=== PATIENT | male | born 1965 | race Caucasian/White ===

== ENCOUNTER 2017-06-28 15:54 | Emergency (ER) | payer OTHER ==
[2017-06-28 16:03] VITALS: BP 152/81; PULSE 106; RESP 20; TEMP 97.8
[2017-06-28 17:08] LABS: Basophils % (A) 1 %; Eosinophils # (A) 0.3 k/uL (0-0.7); Eosinophils % (A) 4 %; HGB 14.7 gm/dL (13.0-17.5); Lymphocytes # (A) 1.7 k/uL (1.0-4.8); Lymphocytes % (A) 27 %; MCH 34.9 pg (25.0-35.0); MCHC 33.4 g/dL (31.0-37.0); MCV 104.5 fL (80.0-100.0); Macrocytosis Slight; Monocytes # (A) 0.3 k/uL (0-1.0); Monocytes % (A) 5 %; Neutrophils # (A) 3.8 k/uL (1.3-7.7); Neutrophils % (A) 60 %; Platelet Count 206 k/uL (150-450); RBC 4.21 m/uL (4.30-5.90); RDW 13.3 % (11.5-15.5); WBC 6.3 k/uL (3.8-10.6)
[2017-06-28 17:18] LABS: Anion Gap 11 mmol/L; Blood Urea Nitrogen 12 mg/dL (9-20); Calcium 9.2 mg/dL (8.4-10.2); Carbon Dioxide 28 mmol/L (22-30); Chloride 105 mmol/L (98-107); Glucose 95 mg/dL (74-99); Potassium 4.1 mmol/L (3.5-5.1); Sodium 144 mmol/L (137-145)
--- NOTE | 2017-06-28 18:17 | US ---
EXAMINATION TYPE: US venous doppler duplex LE LT DATE OF EXAM: 06/28/2017 5:54 PM COMPARISON: recent US CLINICAL HISTORY: Pain. EC patient with increased swelling left leg with DVT and PE; patient is on bl ood thinner SIDE PERFORMED: Left TECHNIQUE: The lower extremity deep venous system is examined utilizing real time linear array sonog silvia with graded compression, doppler sonography and color-flow sonography. VESSELS IMAGED: Common Femoral Vein Deep Femoral Vein Greater Saphenous Vein * Femoral Vein Popliteal Vein Small Saphenous Vein * Proximal Calf Veins (* superficial vessels) Left Leg: Positive for DVT in Left Femoral Vein, Popliteal Vein , and upper calf Veins. IMPRESSION: There is acute deep venous thrombosis evident in the lower femoral vein and the popliteal vein and upper calf veins.
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
== END 2017-06-28 19:55 | disposition home or self-care (01) ==
LOC: EC 15:54
DX: M79.89 Other specified soft tissue disorders (principal); R07.9 Chest pain, unspecified; J44.9 Chronic obstructive pulmonary disease, unspecified; F17.200 Nicotine dependence, unspecified, uncomplicated; Z79.51 Long term (current) use of inhaled steroids; Z79.899 Other long term (current) drug therapy
CPT/HCPCS: 36415; 80048; 85025; 93005; 99285

== ENCOUNTER 2017-07-14 17:48 | Emergency (ER) | payer OTHER ==
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
[2017-07-14] MEDS ORDERED: SODIUM CHLORIDE 0.9% 1,000 ML with MVI, ADULT NO.4 WITH VIT K 10 ML, THIAMINE 100 MG, F... IV ONE ×4 (18:44)
--- NOTE | 2017-07-14 19:08 | CT ---
EXAMINATION TYPE: CT brain wo con DATE OF EXAM: 07/14/2017 COMPARISON: NONE HISTORY: Headache CT DLP: 1017.1 mGycm Automated exposure control for dose reduction was used. FINDINGS: There is mild cerebral cortical atrophy. There is no mass effect nor midline shift. There is no sign of intracranial hemorrhage. The calvarium is intact. There is mild mucosal thickening in the left ant erior ethmoid sinus. IMPRESSION: MILD ATROPHY. OTHERWISE NEGATIVE EXAM.
[2017-07-14 19:48] LABS: ALT 100 U/L (21-72); AST 116 U/L (17-59); Albumin 4.4 g/dL (3.5-5.0); Alkaline Phosphatase 92 U/L (38-126); Anion Gap 17 mmol/L; Blood Urea Nitrogen 15 mg/dL (9-20); Calcium 9.3 mg/dL (8.4-10.2); Carbon Dioxide 26 mmol/L (22-30); Chloride 100 mmol/L (98-107); Glucose 64 mg/dL (74-99); Magnesium 1.7 mg/dL (1.6-2.3); Potassium 4.4 mmol/L (3.5-5.1); Sodium 143 mmol/L (137-145); Total Bilirubin 0.5 mg/dL (0.2-1.3); Total Protein 6.8 g/dL (6.3-8.2)
[2017-07-14 19:54] LABS: Basophils % (A) 1 %; Eosinophils # (A) 0.1 k/uL (0-0.7); Eosinophils % (A) 2 %; HCT 49.6 % (39.0-53.0); HGB 16.3 gm/dL (13.0-17.5); Lymphocytes # (A) 1.6 k/uL (1.0-4.8); Lymphocytes % (A) 29 %; MCH 34.4 pg (25.0-35.0); MCHC 32.8 g/dL (31.0-37.0); MCV 104.7 fL (80.0-100.0); Macrocytosis Slight; Mean Platelet Volume 6.7; Monocytes # (A) 0.2 k/uL (0-1.0); Monocytes % (A) 3 %; Neutrophils # (A) 3.4 k/uL (1.3-7.7); Neutrophils % (A) 61 %; Platelet Count 215 k/uL (150-450); RBC 4.74 m/uL (4.30-5.90); RDW 13.8 % (11.5-15.5); WBC 5.5 k/uL (3.8-10.6)
[2017-07-14 20:48] LABS: Glucose,Whole Blood 73 mg/dL (75-99)
[2017-07-14] MEDS ORDERED: LORazepam 2 MG/ML INJ IV STA ×2 (22:03→22:39)
[2017-07-14 22:05] LABS: Glucose,Whole Blood 146 mg/dL (75-99)
[2017-07-14 23:14] VITALS: BP 139/80; PULSE 112; RESP 16; TEMP 97.8
[2017-07-15 15:41] LABS: Hepatitis A Antibody IgM Non-Reactive (Non-Reactive); Hepatitis B Core IgM Non-Reactive (Non-Reactive)
== END 2017-07-14 23:15 | disposition home or self-care (01) ==
LOC: EC 17:48
DX: F10.129 Alcohol abuse with intoxication, unspecified (principal); R74.8 Abnormal levels of other serum enzymes; J44.9 Chronic obstructive pulmonary disease, unspecified; F17.200 Nicotine dependence, unspecified, uncomplicated; Z79.51 Long term (current) use of inhaled steroids; Z79.899 Other long term (current) drug therapy
CPT/HCPCS: 36415; 80053; 80074; 83735; 84100; 85025; 70450; 99284; 96365; 96366 ×3; 96375; 96376; J2060; J3411

== ENCOUNTER 2017-10-13 22:34 | Emergency (ER) | payer OTHER ==
[2017-10-13 22:43] VITALS: RESP 18
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
[2017-10-13 23:27] LABS: Basophils % (A) 1 %; Eosinophils # (A) 0.2 k/uL (0-0.7); Eosinophils % (A) 3 %; HCT 52.2 % (39.0-53.0); Lymphocytes # (A) 1.9 k/uL (1.0-4.8); Lymphocytes % (A) 28 %; MCH 34.2 pg (25.0-35.0); MCHC 32.6 g/dL (31.0-37.0); MCV 104.8 fL (80.0-100.0); Macrocytosis Slight; Mean Platelet Volume 6.3; Monocytes # (A) 0.3 k/uL (0-1.0); Monocytes % (A) 4 %; Neutrophils # (A) 4.1 k/uL (1.3-7.7); Neutrophils % (A) 62 %; Platelet Count 186 k/uL (150-450); RBC 4.98 m/uL (4.30-5.90); RDW 13.7 % (11.5-15.5); WBC 6.6 k/uL (3.8-10.6)
[2017-10-13 23:32] LABS: Prothrombin Time 9.5 sec (9.0-12.0)
[2017-10-13 23:47] LABS: ALT 62 U/L (21-72); AST 63 U/L (17-59); Albumin 4.3 g/dL (3.5-5.0); Alkaline Phosphatase 73 U/L (38-126); Amylase 49 U/L (30-110); Anion Gap 21 mmol/L; Blood Urea Nitrogen 13 mg/dL (9-20); Carbon Dioxide 22 mmol/L (22-30); Chloride 102 mmol/L (98-107); Glucose 128 mg/dL (74-99); Lipase 59 U/L (23-300); Magnesium 1.6 mg/dL (1.6-2.3); Potassium 3.6 mmol/L (3.5-5.1); Sodium 145 mmol/L (137-145); Total Bilirubin 0.5 mg/dL (0.2-1.3); Total Protein 6.7 g/dL (6.3-8.2)
[2017-10-13 23:50] LABS: Creatine Kinase 366 U/L (55-170)
[2017-10-14 00:02] LABS: Troponin I <0.012 ng/mL (0.000-0.034)
--- NOTE | 2017-10-14 00:29 | XR ---
EXAMINATION TYPE: XR chest 2V DATE OF EXAM: 10/14/2017 COMPARISON: 06/22/2017 HISTORY: Chest pain TECHNIQUE: Frontal and lateral views of the chest are obtained. FINDINGS: Heart and mediastinum are normal. There are multiple old left-sided healed rib fractures. There is slight blunting of left costophrenic angle. There is no heart failure. There are no hilar ma sses. There are chest leads. IMPRESSION: There is some pleural pulmonary scarring at the left lung base. No definite acute lung d isease. No significant change compared to old exam.
[2017-10-14] MEDS ORDERED: RX INFO: IV CONTRAST WAS GIVEN 1 EACH MISC MISCELLANE PRN (01:05)
--- NOTE | 2017-10-14 01:53 | CT ---
EXAMINATION TYPE: CT chest angio for PE DATE OF EXAM: 10/14/2017 COMPARISON: 06/22/2017 HISTORY: R/O PE, Chest pain CT DLP: 658 mGycm Automated exposure control for dose reduction was used. CONTRAST: CT Chest for pulmonary embolism performed with with IV Contrast, patient injected with 100 mL of Isov ue 370. FINDINGS: There are 3-D post processed images. There is mild reticular subpleural density in the left lower lobe. There is no evidence of a pulmonar y mass. There are multiple old left-sided healed rib fractures. There is 4.4 cm aneurysm of the ascen ding aorta. There is no evidence of dissection. I see no filling defects in the pulmonary arteries. There are no hilar masses. There is no mediastina l adenopathy. Thoracic spine is intact. IMPRESSION: No evidence of pulmonary embolism. Multiple old left-sided healed rib fractures. There is clearing of the right lower lobe pulmonary emboli compared to old exam. Stable fibrotic changes at the left lung base. Stable thoracic aortic aneurysm.
[2017-10-14 02:28] VITALS: BP 121/73; PULSE 88; TEMP 97
== END 2017-10-14 02:28 | disposition home or self-care (01) ==
LOC: EC 22:34
DX: F10.929 Alcohol use, unspecified with intoxication, unspecified (principal); R53.81 Other malaise; R53.83 Other fatigue; I26.99 Other pulmonary embolism without acute cor pulmonale; R00.0 Tachycardia, unspecified; G89.29 Other chronic pain; R10.9 Unspecified abdominal pain; R05 Cough; J44.9 Chronic obstructive pulmonary disease, unspecified; F17.200 Nicotine dependence, unspecified, uncomplicated; Z79.01 Long term (current) use of anticoagulants; Z79.51 Long term (current) use of inhaled steroids; Z79.899 Other long term (current) drug therapy; Z98.890 Other specified postprocedural states; Z82.49 Family history of ischemic heart disease and other diseases of the circulatory system
CPT/HCPCS: 99285; 36415; 93005; 85379; 83880; 80053; 82150; 82550; 82553; 83690; 83735; 84484; 85025; 85610; 85730; 71046; 71275; Q9967